=== PATIENT | male | born 1980 | race Hispanic/Latino ===

== ENCOUNTER 2017-11-04 15:25 | Emergency (ER) | payer BC ==
[2017-11-04 15:25] VITALS: BMI 25.8
[2017-11-04 15:44] VITALS: RESP 18; TEMP 98.4; O2SAT 99
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
[2017-11-04 17:25] VITALS: BP 111/76; PULSE 97
--- NOTE | 2017-11-04 18:18 | RAD ---
HISTORY: Chest pain. COMPARISON: 09/29/2016. TECHNIQUE: Chest PA and lateral FINDINGS: LUNGS: No active pulmonary disease. PLEURA: No significant pleural effusion identified. No pneumothorax apparent. CARDIOVASCULAR: Normal. OSSEOUS STRUCTURES: No significant abnormalities. VISUALIZED UPPER ABDOMEN: Normal. OTHER FINDINGS: None. IMPRESSION: No active disease. No significant interval change compared to the prior examination(s).
--- NOTE | 2017-11-05 10:48 | CARD ---
APPROVED REPORT EKG Measurement Heart [id number] <Conclusion> Sinus bradycardia with sinus arrhythmia Otherwise normal ECG
== END 2017-11-04 17:37 | disposition home or self-care (01) ==
LOC: ED 15:25
DX: R07.9 Chest pain, unspecified (principal); F41.9 Anxiety disorder, unspecified

== ENCOUNTER 2018-09-10 08:08 | Outpatient (CLI) | payer OTHER | END 2018-09-10 08:09 | disposition home or self-care (01) | LOC: LAB 08:08 ==

== ENCOUNTER 2018-12-26 12:32 | Outpatient (CLI) | payer OTHER | END 2018-12-26 12:33 | disposition home or self-care (01) | LOC: RAD 12:32 ==